=== PATIENT | female | born 1995 ===

== ENCOUNTER 2024-01-12 09:30 | Outpatient (AMB) | payer OTHER, SELFPAY ==
--- NOTE | 2024-01-12 09:32 | MHC.PC.OV ---
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 Associate Director Of Nursing Required: No Is last menstrual period known: Yes Last menstrual period: 01/22/24 Post menopausal: No Patient : No Allergies Penicillins Adverse Reaction (Mild, Verified 01/12/24 09:37) Nausea Medication List - Last Reconciled 01/12/24 by SEAN Mohamud dextroamphetamine-amphetamine 15 mg (Adderall) 15 mg PO DAILY dextroamphetamine-amphetamine 20 mg (Adderall) 20 mg PO DAILY ergocalciferol (vitamin D2) 1,250 mcg PO QWEEK norgestimate-ethinyl estradiol 0.18/0.215/0.25 mg-35 mcg (28) (Tri-Estarylla) 1 tab PO DAILY Tobacco use date assessed: 01/12/24 Dental Screening Dental Screen Date: 01/12/24 Did you have a dental visit in the last 12 months?: No Did you have a dental problem in the last 6 months where you did not have access to dental care?: No Was dental information given to patient?: Patient has dentist HPI HPI Comments History of Present Illness Details This is a 28-year-old female with a past medical history of ADHD and autism spectrum disorder presenting to transfer care from [facility]. Last year the patient relocated to [place] after purchasing her own condo. 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 Her parents live in [place]. She has a degree in accounting. ADHD-reviewed mass pat, and the patient has been receiving Adderall 20 mg 30 tablets/30 days and Adderall 15 mg 30 tablets/30 days from her primary care office. She takes the 20 mg tablet in the morning and uses the 15 mg tablet in the afternoon. She does not take them every day. Medications are effective. She denies side effects. Patient is interested in referrals to pursue testosterone/gender affirming care. Patient says she has a complex gender identity. Currently she is using she/her pronouns, but she says that may change in the future. Her primary care provider in [place] placed referrals, but this was shortly before she relocated. Patient's depression screening is mildly positive, but the patient says that is related to stress from her recent job change and starting her job tomorrow. She feels like she is coping well, and she is not feeling depressed. She does not have a star route mail driver yet in [place], and she requests referral to establish care. She is on an oral contraceptive pill. She has had issues with constipation for many years. She uses an asmj-gas-utbvsas fiber supplement. She has used laxatives. We discussed alternatives like MiraLax as needed and taking Benefiber. No blood in the stools, abdominal pain or unexplained weight loss. [facility] Medical History (Updated 01/12/24 @ 10:34 by SEAN Mohamud) Gender dysphoria in adult Constipation ADHD Autism Family History (Updated 01/12/24 @ 10:19 by Karly Putnam) Maternal Grandmother Cancer Other Alcohol abuse FH: mental illness Substance abuse Social History Housing: Condominium Patient Tobacco Use Status: Never used Tobacco e-Cigarette/Vaping Use: Never Used Second Hand Smoke Exposure: No service: No Current occupational status: unemployed Current occupational exposures/hazards: No Cognitive needs: Yes Hearing needs: No Vision needs: Yes Female Reproductive History Menstrual Date of last menstrual period: 01/22/24 Questionnaire PHQ-9 Over the last 2 weeks, how often have you been bothered by any of the following problems? 1. Little interest or pleasure in doing things: not at all 2. Feeling down, depressed, or hopeless: several days 3. Trouble falling or staying asleep, or sleeping too much: more than half the days 4. Feeling tired or having little energy: several days 5. Poor appetite or overeating: several days 6. Feeling bad about yourself - or that you are a failure or have let yourself or your family down: several days 7. Trouble concentrating on things, such as reading the newspaper or watching television: not at all 8. Moving or speaking so slowly that other people could have noticed. Or the opposite - being so fidgety or restless that you have been moving around a lot more than usual: not at all 9. Thoughts that you would be better off or of hurting yourself in some way: not at all Total score: 6 Depression Screening Interpretation: Positive (see HPI) Depression Screening Done: Yes 82730 - PHQ-9 Billing: Yes Source: Developed by Drs. Ralph Ma, Vesta Bateman, Erik Pettit and colleagues, with an educational saul from [employer]. Thrive Questionnaire Date Thrive assessed: 01/12/24 I am a: Patient What is your living situation today?: I have a steady place to live Within the past 12 months, did the food you bought not last and you didn't have the money to get more?: Never true Within the past 12 months, did you worry whether your food would run out before you got money to buy more?: Never true Do you have trouble paying for medicines?: No Do you have trouble getting transportation to medical appointments?: No Do you have trouble paying your heating and electricity bill?: No Do you have trouble taking care of your child, family member or friend?: No Do you have trouble with day-to-day activities such as bathing, preparing meals, shopping, managing finances, etc.?: No Are you currently unemployed and looking for a job?: Yes Are you interested in more education?: No Please select the resources that you would like help with: None Currently or been in a relationship where the following occur: No concerns reported THRIVE Score: 0 AUDIT C Alcohol Use Questionnaire (AUDIT-C) 1. How often do you have a drink containing alcohol?: Never Total Score: 0 Review of Systems Const Details: Constitutional: No unexplained weight loss, fever, chills, fatigue or night sweats. Cardiovascular: No chest pain, chest pressure or chest discomfort. No palpitations or pedal edema. Gastrointestinal: No anorexia, nausea, vomiting or diarrhea. No abdominal pain or blood in stool. Psychiatric: No depression. No SI/HI. Physical exam (Primary Care) Vital Signs: Last Vital Signs Temp 97.8 F 01/12/24 09:44 Pulse 108 H 01/12/24 09:44 Resp 16 01/12/24 09:44 BP 92/52 L 01/12/24 09:44 BMI result Body Mass Index 26.3 Tobacco/Smoking Status: Tobacco use Status Tobacco use date assessed 01/12/24 01/12/24 09:43 Patient Tobacco Use Status Never used Tobacco 01/12/24 09:43 e-Cigarette/Vaping Use Never Used 01/12/24 09:43 PHQ-9: PHQ-9 Score PHQ-9: Total score 6 01/12/24 10:27 Depression Screening Interpretation: Positive (see HPI) Thrive Assessment: Date of Thrive Assessment Date Thrive assessed 01/12/24 01/12/24 09:52 Currently or been in a relationship where the following occur: No concerns reported Const Other: Constitutional: Alert, in no distress. Neck: Supple, Full range of motion. No lymphadenopathy. No palpable thyroid masses. Respiratory: Clear to auscultation. Cardiovascular: S1 S2 regular. 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 Ordered referrals for endocrine consult and Psychology. (2) Constipation: Code(s): K59.00 - Constipation, unspecified Qualifiers: Constipation type: other constipation type Qualified Code(s): K59.09 - Other constipation Plan: Drink plenty of water. Increase dietary fiber. Decrease dairy. Can use MiraLax, Benefiber. Discouraged use of laxatives. Warning signs warranting re-evaluation reviewed. (3) ADHD: Code(s): F90.9 - Attention-deficit hyperactivity disorder, unspecified type Qualifiers: Attention deficit-hyperactivity disorder type: unspecified Qualified Code(s): F90.9 - Attention-deficit hyperactivity disorder, unspecified type Plan Last refills given 01/06/2024. Encourage patient to sign up for the portal to request future refills from this office. I will continue her medication. Orders: Referrals RN MATERNAL CHILD Referral Z76.89 - Persons encountering health services in other specified circumstances Endocrinology Referral F64.0 - Transsexualism Psychology Referral F64.0 - Transsexualism, F90.9 - Attention-deficit hyperactivity disorder, unspecified type Patient Instructions: Follow up in 6 months for med check. Records transfer pending. Coding Level of Care Code New Pt Level 4 (66495) Complex EM visit Add On G2211 Diagnoses Gender dysphoria in adult F64.0 Other constipation K59.09 Constipation type: other constipation type Attention deficit hyperactivity disorder (ADHD), unspecified ADHD type F90.9 Attention deficit-hyperactivity disorder type: unspecified
[2024-01-12 09:44] VITALS: BP 92/52; PULSE 108; RESP 16; TEMP 36.6; BMI 26.3
== END 2024-01-12 10:19 | disposition home or self-care (01) ==
PROVIDERS: PCP Physician Assistant Medical; Visit Provider Physician Assistant Medical
DX: F64.0 Transsexualism (principal); K59.09 Other constipation; F90.9 Attention-deficit hyperactivity disorder, unspecified type
CPT/HCPCS: 99203; G2211

== ENCOUNTER 2024-07-19 15:06 | Outpatient (AMB) | payer OTHER, SELFPAY ==
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
[2024-07-19 15:10] VITALS: BP 90/60; PULSE 110; O2SAT 97; BMI 26.9
--- OUTSIDE RECORDS SUMMARY | 2024-07-19 17:07 | XMS_ITS ---
Author Name [facility] Organization Unknown History of Medication Use Medication Directions Dispensed Refills Start Date End Date Stat norgestimate-ethinyl estradiol (Tri-Estarylla) 0.18/0.215/0.25 MG-35 MCG per tablet TAKE 1 TABLET BY MOUTH EVERY DAY 02/29/2024 active amphetamine-dextroamph etamine (ADDERALL) 10 MG tablet Take 2 tablets (20 mg total) by mouth daily. Max Daily Amount: 35 mg 04/06/2023 active amphetamine-dextroamph etamine (ADDERALL) 15 MG tablet Take 1 tablet (15 mg total) by mouth daily. Max Daily Amount: 35 mg 01/10/2023 active ergocalciferol (VITAMIN D2,DRISDOL) 71861 units Cap Take 1 capsule (50,000 Units total) by mouth once a week. 04/30/2023 active ergocalciferol (VITAMIN D2,DRISDOL) 49207 units Cap Take 1 capsule by mouth daily. 01/10/2023 active amphetamine-dextroamph etamine (ADDERALL) 20 MG tablet Take 1 tablet (20 mg total) by mouth daily. Max Daily Amount: 35 mg 01/10/2023 active Tri-Sprintec 0.18/0.215/0.25 MG-35 MCG per tablet TAKE 1 TABLET BY MOUTH EVERY DAY 01/10/2023 active Problems Problem Status Onset Date Problem Type Date of Resoluti on Source Autism active 2023-02-17 ProblemAct [facility] ADHD active 2023-02-17 ProblemAct [facility] BMI 28.0-28.9,adult active 2023-02-17 ProblemAct [facility] Hyperlipidemia active 2023-02-17 ProblemAct [facility] Vitamin D deficiency [facility] 2023-02-17 [facility]
== END 2024-07-19 16:04 | disposition home or self-care (01) ==
PROVIDERS: PCP Physician Assistant Medical; Visit Provider Physician Assistant Medical
DX: F90.9 Attention-deficit hyperactivity disorder, unspecified type (principal)

== ENCOUNTER → 2024-07-19 15:06 | Outpatient (BNVA) | payer OTHER, SELFPAY | PROVIDERS: PCP Physician Assistant Medical; Visit Provider Physician Assistant Medical | DX: F90.9 Attention-deficit hyperactivity disorder, unspecified type (principal); F84.0 Autistic disorder; E55.9 Vitamin D deficiency, unspecified; Z79.899 Other long term (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 | CPT/HCPCS: 99212 ==

== ENCOUNTER 2025-01-17 15:55 | Outpatient (AMB) | payer OTHER, SELFPAY ==
--- OUTSIDE RECORDS SUMMARY | 2025-01-17 15:57 | XMS_ITS | Encounter Summary ---
Author Organization [facility] Address [address] [place] [address] Care Team Providers Care Heating And Ventilating Tender Name Role Phone Kanchan Stone APRN Primary Care Provider Un available Encounter Details Date Type Department Care Team (Late st Contact Info) Description 04/21/2023 Scanned Document [facility] Department of Internal Medicine [place] [address] [place] [id number] Kanchan Stone APRN *need valid address Social History Tobacco Use Types Packs/Day Years Used Date Smoking Tobacco: Never Smokeless Tobacco: Never Alcohol Use Standard Drinks/Week Comments Never 0 (1 standard drink = 0.6 oz pur e alcohol) PHQ-2 Answer Date Recorded PHQ-2 Total Score 0 02/17/2023 Comments Unknown Sex and Gender Information Value Date Recorded Sex Assigned at Choose not to disclose 9:19 AM EST Legal Sex Female 12:09 PM EDT Gender Identity Choose not to disclose 9:19 AM EST Sexual Orientation Choose not to disclose 2022 9:19 AM EST documented as of this encounter Plan of Treatment Not on file documented as of this encounter Visit Diagnoses Not on filedocumented in this encounter Care Teams Heating And Ventilating Tender Relationship Specialty Start Date End Date Kanchan Stone APRN PCP - General Internal Medicine 09/02/22 01/01/24 documented as of this encounter
--- OUTSIDE RECORDS SUMMARY | 2025-01-17 15:57 | XMS_ITS ---
Author Name [facility] Organization Unknown History of Medication Use Medication Directions Dispensed Refills Start Date End Date Stat us norgestimate-ethinyl estradiol (Tri-Estarylla) 0.18/0.215/0.25 MG-35 MCG per tablet TAKE 1 TABLET BY MOUTH EVERY DAY 02/27/2024 active ergocalciferol (VITAMIN D2,DRISDOL) 79683 units Cap Take 1 capsule (50,000 Units total) by mouth once a week. 04/21/2023 active amphetamine-dextroamph etamine (ADDERALL) 20 MG tablet Take 1 tablet (20 mg total) by mouth daily. Max Daily Amount: 35 mg 12/25/2022 active Allergies Allergen Reaction Severity Comment Documented Date Source Statu s PENICILLINS UNKNOWN/PATIENT AND FAMILY UNABLE TO DEFINE 01/23/2023 [facility] active SULFA ANTIBIOTICS RASH/DERMATITIS 05/14/[address] [facility] [address] active Problems Problem Status Onset Date Problem Type Date of Resoluti on Source Vitamin D deficiency active 2023-02-17 ProblemAct [facility] Hyperlipidemia active 2023-02-17 ProblemAct [facility] BMI 28.0-28.9,adult active 2023-02-17 ProblemAct [facility] ADHD active 2023-02-17 ProblemAct [facility] Autism active 2023-02-17 ProblemAct [facility] Encounters Encounter Type Encounter Reason Primary Diagnosis Location Date Ambulatory Other [facility] (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 (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 [facility] 11/10/2023 Ambulatory Other [facility] (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 Other [facility] (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 [facility] 08/14/2023 Ambulatory Attention-deficit hyperactivity disorder, combined type Attention-deficit hyperactivity disorder, combined type [facility] 05/19/2023 Ambulatory 

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
[2025-01-17 16:12] VITALS: BP 108/64; PULSE 115; TEMP 36.7; O2SAT 98; BMI 26.1
[2025-01-17 16:29] VITALS: PULSE 98
== END 2025-01-17 16:43 | disposition home or self-care (01) ==
LOC: HO.HMCFM 15:55
PROVIDERS: PCP Physician Assistant Medical; Visit Provider Physician Assistant Medical
DX: Z00.00 Encounter for general adult medical examination without abnormal findings (principal); F90.9 Attention-deficit hyperactivity disorder, unspecified type

== ENCOUNTER → 2025-01-17 15:55 | Outpatient (BNVA) | payer OTHER, SELFPAY | PROVIDERS: PCP Physician Assistant Medical; Visit Provider Physician Assistant Medical | DX: Z00.00 Encounter for general adult medical examination without abnormal findings (principal); F90.9 Attention-deficit hyperactivity disorder, unspecified type; F64.0 Transsexualism; F84.0 Autistic disorder; Z79.899 Other long term (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 | CPT/HCPCS: 99395 ==